=== PATIENT | female | born 1985 | race African-American/Black ===

== ENCOUNTER 2017-05-18 13:18 | Emergency (ER) | payer BC ==
[~2017-05-18] VITALS: Ht 165.1 cm; Wt 78.2 kg
[~2017-05-18 13:18] MED LIST: 00186-0372-20 IH; AMOXICILLIN 50500 MG PO; APTIOM; APTIOM PO; ASPIR-LOW81 MG PO; ASPIRIN E.C. 8181 MG PO; FERROUS SU325 MG/TAB PO; FLEXERIL 1010 MG/TAB PO; FLOVENT 44MCG I13 GM; IRON65 MG PO; LOVENOX 3030 MG/0.3 SQ; LOVENOX 4040 MG/0.4 SQ; LOVENOX30 MG/0.1 IJ; MOTRIN 600600 MG/TAB PO; NAPROSYN500 MG PO; NO HOME MEDICATIONS; NORCO 325 MG-51 TAB PO; PENICILLIN V250 MG PO; PERCOCET 325 MG1 TA2 PO; PERCOCET 500 MG1 TAB PO; PHENERGAN 25 TA25 MG PO; PHENERGAN W/CO120 ML PO; PHENERGAN25 MG; PHENERGAN25 MG RC; PREDNISONE20 MG PO; PRENATAL VITAMI1 TA5 PO; PRENATAL VITAMI1 TAB PO; PRENATAL1 TA2 PO; PROAIR HFA0.09 MG/AC; PROGESTERONE PO; PROTONIX20 MG PO; PROVENTIL0.09 MG/A1 IH; TRICOR 48MG48 MG PO; ZOFRAN 4MG T4 MG/TAB PO; ZOFRAN ODT4 MG PO
[2017-05-18 13:20] VITALS: TEMP 99
[2017-05-18 13:39] LABS: BASO # 0.1 (0.0-0.2); BASO % 0.6 % (0.0-2.0); EOS # 0.1 (0.0-0.7); EOS % 1.5 % (0-4.0); GRAN # 3.6 (1.4-6.5); GRAN % 40.9 % (42.2-75.2); LYMPH # 4.3 (1.2-3.4); LYMPH % 49.2 % (20.0-51.0); MEAN CELL VOLUME 76 fl (80.0-100.0); MEAN CORPUSCULAR HGB CONC 31 g/dl (33.0-37.0); MEAN PLATELET VOLUME 9.1 fl (7.4-10.4); MONO # 0.7 (0.1-0.6); MONO % 7.6 % (1.7-9.3); PLATELET COUNT 413 K/mm3 (130-400); RED BLOOD COUNT 4.33 M/mm3 (4.10-5.30); REDCELL DISTRIBUTION WIDTH-CV 15.7 % (11.5-14.5); WHITE BLOOD COUNT 8.7 K/mm3 (4.8-10.8)
[2017-05-18 13:42] LABS: HEMATOCRIT 32.7 % (37.0-47.0); HEMOGLOBIN 10.1 g/dl (12.5-16.0); MEAN CORPUSCULAR HEMOGLOBIN 23 pg (27.0-31.0)
[2017-05-18 13:55] LABS: ALANINE AMINOTRANSFERASE 24 U/L (9-52); ALBUMIN 4.6 gm/dL (3.5-5.0); ALKALINE PHOSPHATASE 82 U/L (50-136); ANION GAP 13 mmol/L (7-16); BILIRUBIN,TOTAL 0.8 mg/dL (0.0-1.0); BLOOD UREA NITROGEN 11 mg/dL (7-17); CALCIUM 9.5 mg/dL (8.4-10.2); CARBON DIOXIDE 23 mmol/L (22-30); CHLORIDE 103 mmol/L (98-107); CREATININE, serum 0.71 mg/dL (0.52-1.25); GLUCOSE 88 mg/dL (74-106); MAGNESIUM 1.9 mg/dL (1.6-2.3); POTASSIUM 3.8 mmol/L (3.4-5.0); SODIUM 138 mmol/L (137-145); TOTAL PROTEIN 8.6 gm/dL (6.4-8.2)
[2017-05-18 13:57] LABS: ACETAMINOPHEN < 10 ug/mL (10-30); SALICYLATE < 1.0 mg/dL
[2017-05-18 14:10] LABS: PROLACTIN 14.1 ng/mL (3.0-18.6)
[2017-05-18] MEDS ORDERED: KEPPRA 500MG500 MG PO (15:07)
[2017-05-18 15:42] VITALS: BP 137/79; PULSE 97
== END 2017-05-18 15:42 | disposition home or self-care (01) ==
LOC: COL.ER 13:18
PROVIDERS: Physician Assistant
DX: G40.209 Localization-related (focal) (partial) symptomatic epilepsy and epileptic syndromes with complex partial seizures, not intractable, without status epilepticus (principal); F41.9 Anxiety disorder, unspecified; Z91.14 Patient's other noncompliance with medication regimen
CPT/HCPCS: J1953; J2060; J2405; J7030

== ENCOUNTER 2017-06-29 12:51 | Emergency (ER) | payer BC ==
[~2017-06-29] VITALS: Ht 162.6 cm; Wt 81.8 kg
[~2017-06-29 12:51] MED LIST changes: +KEPPRA 500MG500 MG PO
[2017-06-29 12:55] VITALS: TEMP 98.3
[2017-06-29 13:32] LABS: PH 6 (5-8); URINE APPEARANCE Hazy; URINE BACTERIA Rare /hpf; URINE BILIRUBIN Negative (NEGATIVE); URINE BLOOD Negative (NEGATIVE); URINE COLOR Yellow; URINE GLUCOSE Negative (NEGATIVE); URINE KETONE Negative (NEGATIVE); URINE RBC 0-2 /hpf; URINE UROBILINOGEN Negative (NEGATIVE); URINE WBC 0-2 /hpf
[2017-06-29 14:29] LABS: BASO % 0.4 % (0.0-2.0); EOS # 0.1 (0.0-0.7); GRAN # 5.1 (1.4-6.5); GRAN % 61.7 % (42.2-75.2); LYMPH # 2.5 (1.2-3.4); LYMPH % 29.7 % (20.0-51.0); MEAN CELL VOLUME 76 fl (80.0-100.0); MEAN CORPUSCULAR HGB CONC 32 g/dl (33.0-37.0); MEAN PLATELET VOLUME 9.5 fl (7.4-10.4); MONO # 0.6 (0.1-0.6); PLATELET COUNT 311 K/mm3 (130-400); RED BLOOD COUNT 3.99 M/mm3 (4.10-5.30); REDCELL DISTRIBUTION WIDTH-CV 17.9 % (11.5-14.5); WHITE BLOOD COUNT 8.3 K/mm3 (4.8-10.8)
[2017-06-29 14:30] LABS: HEMATOCRIT 30.5 % (37.0-47.0); HEMOGLOBIN 9.7 g/dl (12.5-16.0); MEAN CORPUSCULAR HEMOGLOBIN 24 pg (27.0-31.0)
[2017-06-29 14:34] LABS: ADJUSTED CALCIUM 8.8 mg/dL (8.4-10.2); BILIRUBIN,TOTAL 0.8 mg/dL (0.0-1.0); CALCIUM 8.8 mg/dL (8.4-10.2); CREATININE, serum 0.58 mg/dL (0.52-1.25); POTASSIUM 3.8 mmol/L (3.4-5.0); TOTAL PROTEIN 7.9 gm/dL (6.4-8.2)
[2017-06-29] MEDS ORDERED: NORCO 325 MG-51 TAB PO (15:19)
[2017-06-29 15:36] VITALS: BP 126/82; PULSE 79
[2017-06-29 17:16] LABS: CHLAMYDIA/TRACH by PCR Female NOT DETECTED; NEISSERIA GON by PCR Female NOT DETECTED
== END 2017-06-29 15:38 | disposition home or self-care (01) ==
LOC: COL.ER 12:51
PROVIDERS: Physician Assistant
DX: O26.891 Other specified pregnancy related conditions, first trimester (principal); M54.5 Low back pain; O99.511 Diseases of the respiratory system complicating pregnancy, first trimester; J45.909 Unspecified asthma, uncomplicated; Z87.59 Personal history of other complications of pregnancy, childbirth and the puerperium; Z3A.08 8 weeks gestation of pregnancy

== ENCOUNTER 2017-10-08 15:02 | Outpatient (CLI) | payer BC ==
[~2017-10-08] VITALS: Ht 162.6 cm; Wt 83.6 kg
[2017-10-08 15:00] VITALS: BP 144/67; PULSE 96
[~2017-10-08 15:02] MED LIST changes: +MAKENA250 MG/1 M IM; +PRENATAL
[2017-10-08 15:06] VITALS: BP 148/77; PULSE 80; TEMP 98.4
[2017-10-08 15:30] VITALS: BP 139/63; PULSE 86
[2017-10-08 16:00] VITALS: BP 139/67; PULSE 82; TEMP 98.1
[2017-10-08 16:17] LABS: COLLECTION METHOD CLEAN CATCH
[2017-10-08 16:20] LABS: MEAN CELL VOLUME 82 fl (80.0-100.0); MEAN CORPUSCULAR HGB CONC 31 g/dl (33.0-37.0); MEAN PLATELET VOLUME 9.6 fl (7.4-10.4); PLATELET COUNT 318 K/mm3 (130-400); RED BLOOD COUNT 3.43 M/mm3 (4.10-5.30)
[2017-10-08 16:26] LABS: HEMOGLOBIN 8.7 g/dl (12.5-16.0); MEAN CORPUSCULAR HEMOGLOBIN 25 pg (27.0-31.0)
[2017-10-08 16:27] LABS: MUCOUS Present /lpf; PH 7 (5-8); URINE APPEARANCE Hazy; URINE BACTERIA None Seen /hpf; URINE BILIRUBIN Negative (NEGATIVE); URINE BLOOD Negative (NEGATIVE); URINE COLOR Yellow; URINE GLUCOSE Negative (NEGATIVE); URINE KETONE Negative (NEGATIVE); URINE LEUKOCYTE ESTERASE Negative (NEGATIVE); URINE PROTEIN(semi-quant) Negative (NEGATIVE); URINE RBC 0-2 /hpf; URINE UROBILINOGEN >=4.0 mg/dL (NEGATIVE); URINE WBC 0-2 /hpf
[2017-10-08 16:30] VITALS: BP 147/79; PULSE 90
[2017-10-08 16:32] LABS: ADJUSTED CALCIUM 9.2 mg/dL (8.4-10.2); ALBUMIN 3.6 gm/dL (3.5-5.0); BILIRUBIN,TOTAL 0.5 mg/dL (0.0-1.0); CALCIUM 8.9 mg/dL (8.4-10.2); CREATININE, serum 0.57 mg/dL (0.52-1.25); POTASSIUM 3.7 mmol/L (3.4-5.0); TOTAL PROTEIN 7.4 gm/dL (6.4-8.2)
[2017-10-08 18:00] VITALS: BP 134/71; PULSE 90
== END 2017-10-08 18:27 | disposition home health service (06) ==
LOC: LDRO 15:02 → LDR 15:02 → LDRO 18:27
PROVIDERS: Obstetrics & Gynecology
DX: O99.89 Other specified diseases and conditions complicating pregnancy, childbirth and the puerperium (principal); M54.5 Low back pain; R51 Headache; H53.8 Other visual disturbances; Z87.59 Personal history of other complications of pregnancy, childbirth and the puerperium; Z3A.22 22 weeks gestation of pregnancy; Z91.040 Latex allergy status
CPT/HCPCS: OP

== ENCOUNTER 2017-10-19 11:31 | Emergency (ER) | payer BC ==
[~2017-10-19] VITALS: Ht 162.6 cm; Wt 84.1 kg
[2017-10-19 11:37] VITALS: TEMP 99
[2017-10-19 12:22] LABS: COLLECTION METHOD CLEAN CATCH
[2017-10-19 12:30] LABS: BASO % 0.5 % (0.0-2.0); EOS % 0.5 % (0-4.0); GRAN # 5.5 (1.4-6.5); GRAN % 67.2 % (42.2-75.2); LYMPH # 1.4 (1.2-3.4); LYMPH % 17.5 % (20.0-51.0); MEAN CELL VOLUME 79 fl (80.0-100.0); MEAN CORPUSCULAR HGB CONC 31 g/dl (33.0-37.0); MEAN PLATELET VOLUME 9.2 fl (7.4-10.4); MONO # 1.1 (0.1-0.6); MONO % 13.3 % (1.7-9.3); PLATELET COUNT 333 K/mm3 (130-400); RED BLOOD COUNT 3.84 M/mm3 (4.10-5.30); REDCELL DISTRIBUTION WIDTH-CV 15.6 % (11.5-14.5)
[2017-10-19 12:32] LABS: INFLUENZA A NEGATIVE; INFLUENZA B NEGATIVE
[2017-10-19 12:32] LABS: HEMATOCRIT 30.4 % (37.0-47.0); HEMOGLOBIN 9.4 g/dl (12.5-16.0); MEAN CORPUSCULAR HEMOGLOBIN 24 pg (27.0-31.0)
[2017-10-19 12:35] LABS: BILIRUBIN,TOTAL 0.8 mg/dL (0.0-1.0); CALCIUM 9.2 mg/dL (8.4-10.2); CREATININE, serum 0.56 mg/dL (0.52-1.25); MUCOUS Present /lpf; PH 6 (5-8); POTASSIUM 3.8 mmol/L (3.4-5.0); TOTAL PROTEIN 8.1 gm/dL (6.4-8.2); URINE APPEARANCE Hazy; URINE BACTERIA None Seen /hpf; URINE BILIRUBIN Negative (NEGATIVE); URINE BLOOD Negative (NEGATIVE); URINE COLOR Yellow; URINE GLUCOSE Negative (NEGATIVE); URINE KETONE 1+ (NEGATIVE); URINE LEUKOCYTE ESTERASE Negative (NEGATIVE); URINE NITRATE Negative (NEGATIVE); URINE PROTEIN(semi-quant) 1+ (NEGATIVE); URINE RBC 0-2 /hpf; URINE UROBILINOGEN >=4.0 mg/dL (NEGATIVE)
[2017-10-19] MEDS ORDERED: PHENERGAN 25 TA25 MG PO (15:07)
[2017-10-19 15:50] VITALS: BP 114/63; PULSE 94
== END 2017-10-19 15:52 | disposition home or self-care (01) ==
LOC: COL.ER 11:31
PROVIDERS: Nurse Practitioner
DX: J06.9 Acute upper respiratory infection, unspecified (principal); R11.10 Vomiting, unspecified; J45.909 Unspecified asthma, uncomplicated
CPT/HCPCS: J2550; J7030

== ENCOUNTER 2017-11-13 11:51 | Outpatient (CLI) | payer BC ==
[~2017-11-13] VITALS: Ht 162.6 cm; Wt 84.1 kg
[2017-11-13 11:56] VITALS: BP 138/81; PULSE 80; TEMP 98.6
[2017-11-13] MEDS ORDERED: PRENATAL1 TA7 PO (12:04)
[2017-11-13 12:17] LABS: COLLECTION METHOD CATHETER
[2017-11-13 12:50] VITALS: BP 139/73; PULSE 76
[2017-11-13 13:07] LABS: MUCOUS Present /lpf; PH 7 (5-8); SQUAMOUS EPITHELIAL 0-2 /hpf; URINE APPEARANCE Clear; URINE BACTERIA None Seen /hpf; URINE BILIRUBIN Negative (NEGATIVE); URINE BLOOD Negative (NEGATIVE); URINE COLOR Straw; URINE GLUCOSE Negative (NEGATIVE); URINE KETONE Negative (NEGATIVE); URINE LEUKOCYTE ESTERASE Negative (NEGATIVE); URINE NITRATE Negative (NEGATIVE); URINE PROTEIN(semi-quant) Negative (NEGATIVE); URINE RBC 0-2 /hpf; URINE UROBILINOGEN Negative (NEGATIVE); URINE WBC 0-2 /hpf
[2017-11-13 13:30] VITALS: BP 132/72; PULSE 76
== END 2017-11-13 13:30 | disposition home or self-care (01) ==
LOC: LDRO 11:51
PROVIDERS: Obstetrics & Gynecology
DX: O60.02 Preterm labor without delivery, second trimester (principal); Z3A.27 27 weeks gestation of pregnancy
CPT/HCPCS: J0702; J7120

== ENCOUNTER 2017-12-15 11:14 | Outpatient (CLI) | payer BC ==
[~2017-12-15] VITALS: Ht 162.6 cm; Wt 86.8 kg
[~2017-12-15 11:14] MED LIST changes: +PRENATAL1 TA7 PO
[2017-12-15 11:15] VITALS: BP 140/83; PULSE 99; TEMP 98.1
[2017-12-15] MEDS ORDERED: ZANTAC 7575 MG PO (11:22)
[2017-12-15 12:30] VITALS: BP 140/83; PULSE 99; TEMP 98.1
[2017-12-15 12:40] LABS: BASO % 0.3 % (0.0-2.0); EOS # 0.1 (0.0-0.7); EOS % 0.6 % (0-4.0); GRAN # 6.9 (1.4-6.5); GRAN % 69.6 % (42.2-75.2); LYMPH # 2.1 (1.2-3.4); MEAN CELL VOLUME 75 fl (80.0-100.0); MEAN CORPUSCULAR HGB CONC 30 g/dl (33.0-37.0); MEAN PLATELET VOLUME 9.3 fl (7.4-10.4); MONO # 0.8 (0.1-0.6); MONO % 7.6 % (1.7-9.3); PLATELET COUNT 271 K/mm3 (130-400); RED BLOOD COUNT 3.72 M/mm3 (4.10-5.30); REDCELL DISTRIBUTION WIDTH-CV 17.1 % (11.5-14.5)
[2017-12-15 12:41] LABS: HEMOGLOBIN 8.5 g/dl (12.5-16.0); MEAN CORPUSCULAR HEMOGLOBIN 23 pg (27.0-31.0)
[2017-12-15 12:51] LABS: ALBUMIN 3.2 gm/dL (3.5-5.0); BILIRUBIN,TOTAL 0.7 mg/dL (0.0-1.0); CALCIUM 8.2 mg/dL (8.4-10.2); CREATININE, serum 0.49 mg/dL (0.52-1.25); POTASSIUM 3.7 mmol/L (3.4-5.0); TOTAL PROTEIN 6.9 gm/dL (6.4-8.2)
[2017-12-15 13:10] VITALS: BP 128/59; PULSE 78
== END 2017-12-15 13:20 | disposition home or self-care (01) ==
LOC: LDR 11:14 → LDRO 11:14
PROVIDERS: Student in an Organized Health Care Education/Training Program
DX: O99.89 Other specified diseases and conditions complicating pregnancy, childbirth and the puerperium (principal); R51 Headache; H53.8 Other visual disturbances; Z3A.32 32 weeks gestation of pregnancy
CPT/HCPCS: OP

== ENCOUNTER 2017-12-28 20:48 | Outpatient (CLI) | payer BC ==
[~2017-12-28] VITALS: Ht 162.6 cm; Wt 88.2 kg
[~2017-12-28 20:48] MED LIST changes: +ZANTAC 7575 MG PO
[2017-12-28 22:00] VITALS: BP 139/75; PULSE 86; TEMP 97.9
== END 2017-12-28 22:15 | disposition home or self-care (01) ==
LOC: LDRO 20:48
DX: O34.83 Maternal care for other abnormalities of pelvic organs, third trimester (principal); Z3A.34 34 weeks gestation of pregnancy

== ENCOUNTER 2018-01-05 21:25 | Outpatient (CLI) | payer BC ==
[~2018-01-05] VITALS: Ht 162.6 cm; Wt 88.2 kg
[2018-01-05 21:44] VITALS: BP 143/68; PULSE 82; TEMP 99.3
[2018-01-05 22:00] VITALS: BP 144/77; PULSE 88
[2018-01-05 22:30] VITALS: BP 159/82; PULSE 88
[2018-01-05 23:00] VITALS: BP 139/81; PULSE 88
[2018-01-05 23:30] VITALS: BP 148/79; PULSE 85
[2018-01-05 23:47] VITALS: BP 161/77; PULSE 85
== END 2018-01-05 23:54 | disposition home or self-care (01) ==
LOC: LDRO 21:25
DX: O60.03 Preterm labor without delivery, third trimester (principal); Z3A.35 35 weeks gestation of pregnancy

== ENCOUNTER 2018-01-13 00:48 | Outpatient (CLI) | payer BC ==
[~2018-01-13] VITALS: Ht 162.6 cm; Wt 88.6 kg
[2018-01-13] VITALS (13 sets, daily range): BP systolic 140–160; BP diastolic 65–96; PULSE 61–84; TEMP 98.5–98.9
[2018-01-13] MEDS ORDERED: VISTARIL 2525 MG/CAP PO (01:18)
[2018-01-13 03:16] LABS: COLLECTION METHOD CLEAN CATCH
[2018-01-13 03:18] LABS: BASO % 0.3 % (0.0-2.0); EOS # 0.1 (0.0-0.7); EOS % 0.7 % (0-4.0); GRAN # 7.5 (1.4-6.5); GRAN % 65.8 % (42.2-75.2); LYMPH # 2.8 (1.2-3.4); LYMPH % 24.5 % (20.0-51.0); MEAN CELL VOLUME 72 fl (80.0-100.0); MEAN CORPUSCULAR HGB CONC 31 g/dl (33.0-37.0); MEAN PLATELET VOLUME 9.6 fl (7.4-10.4); MONO # 0.9 (0.1-0.6); PLATELET COUNT 287 K/mm3 (130-400); REDCELL DISTRIBUTION WIDTH-CV 17.9 % (11.5-14.5)
[2018-01-13 03:19] LABS: HEMATOCRIT 28.8 % (37.0-47.0); HEMOGLOBIN 8.9 g/dl (12.5-16.0); MEAN CORPUSCULAR HEMOGLOBIN 22 pg (27.0-31.0)
[2018-01-13 03:22] LABS: MUCOUS Present /lpf; PH 5 (5-8); URINE APPEARANCE Hazy; URINE BACTERIA Rare /hpf; URINE BILIRUBIN Negative (NEGATIVE); URINE BLOOD Negative (NEGATIVE); URINE COLOR Amber; URINE GLUCOSE Negative (NEGATIVE); URINE KETONE 2+ (NEGATIVE); URINE LEUKOCYTE ESTERASE Negative (NEGATIVE); URINE NITRATE Negative (NEGATIVE); URINE PROTEIN(semi-quant) 1+ (NEGATIVE); URINE RBC 0-2 /hpf; URINE UROBILINOGEN >=4.0 mg/dL (NEGATIVE); URINE WBC 0-2 /hpf
[2018-01-13 03:28] LABS: ALBUMIN 3.4 gm/dL (3.5-5.0); CALCIUM 8.7 mg/dL (8.4-10.2); CREATININE, serum 0.49 mg/dL (0.52-1.25); POTASSIUM 3.8 mmol/L (3.4-5.0); TOTAL PROTEIN 7.4 gm/dL (6.4-8.2)
== END 2018-01-13 07:05 | disposition home or self-care (01) ==
LOC: LDRO 00:48
PROVIDERS: Obstetrics & Gynecology
DX: O62.9 Abnormality of forces of labor, unspecified (principal); Z3A.36 36 weeks gestation of pregnancy
CPT/HCPCS: J7120

== ENCOUNTER 2018-01-19 10:52 | Inpatient (IN) | payer BC ==
[2018-01-19] VITALS (43 sets, daily range): BP systolic 127–177; BP diastolic 62–100; PULSE 57–122; TEMP 97.6–98.4
[~2018-01-19] VITALS: Ht 162.6 cm; Wt 88.2 kg
[~2018-01-19 10:52] MED LIST changes: +VISTARIL 2525 MG/CAP PO
[2018-01-19 11:39] LABS: BASO % 0.2 % (0.0-2.0); EOS # 0.1 (0.0-0.7); EOS % 0.7 % (0-4.0); GRAN # 5.7 (1.4-6.5); GRAN % 68.9 % (42.2-75.2); LYMPH # 1.9 (1.2-3.4); LYMPH % 22.5 % (20.0-51.0); MEAN CELL VOLUME 72 fl (80.0-100.0); MEAN CORPUSCULAR HGB CONC 30 g/dl (33.0-37.0); MEAN PLATELET VOLUME 9.9 fl (7.4-10.4); MONO # 0.5 (0.1-0.6); MONO % 6.4 % (1.7-9.3); PLATELET COUNT 274 K/mm3 (130-400); RED BLOOD COUNT 3.84 M/mm3 (4.10-5.30)
[2018-01-19 11:41] LABS: HEMATOCRIT 27.7 % (37.0-47.0); HEMOGLOBIN 8.4 g/dl (12.5-16.0); MEAN CORPUSCULAR HEMOGLOBIN 22 pg (27.0-31.0)
[2018-01-19 11:45] LABS: ALBUMIN 3.2 gm/dL (3.5-5.0); BILIRUBIN,TOTAL 0.9 mg/dL (0.0-1.0); CALCIUM 8.9 mg/dL (8.4-10.2); CREATININE, serum 0.55 mg/dL (0.52-1.25); POTASSIUM 3.6 mmol/L (3.4-5.0); TOTAL PROTEIN 7.1 gm/dL (6.4-8.2)
[2018-01-20 04:06] VITALS: BP 136/78; PULSE 76; TEMP 98.7
[2018-01-20 09:00] VITALS: BP 138/92; PULSE 88; TEMP 98.2
[2018-01-20 21:10] VITALS: BP 150/81; PULSE 75; TEMP 98.7
[2018-01-21 07:30] VITALS: BP 143/87; PULSE 80; TEMP 97.7
[2018-01-21] MEDS ORDERED: FERROUS SU325 MG/TAB PO (08:34)
[2018-01-21] MEDS ORDERED: IBU600 MG PO (08:42)
[2018-01-21] MEDS ORDERED: PERCOCET 325 MG1 TA2 PO (08:43)
[2018-01-21 12:30] VITALS: BP 155/78; PULSE 70; TEMP 97.8
[2018-01-21 16:45] VITALS: BP 155/91; PULSE 67; TEMP 97.5
[2018-01-21 21:30] VITALS: BP 148/92; PULSE 92; TEMP 98.4
[2018-01-22] VITALS: BP 124/54; PULSE 92; TEMP 97.9
[2018-01-22 04:30] VITALS: BP 120/60; PULSE 70
[2018-01-22 07:50] VITALS: BP 136/86; PULSE 96; TEMP 98.4
[2018-01-22] MEDS ORDERED: PROCARDIA XL 3030 MG PO (09:03)
[2018-01-22] MEDS ORDERED: LOVENOX 4040 MG/0.4 SQ (09:05)
== END 2018-01-22 11:00 | disposition home or self-care (01) | DRG 774 ==
LOC: LDRO 10:52 → OB 13:02 → LDR 13:02 → OB 01-20
PROVIDERS: Obstetrics & Gynecology
PROC: 10E0XZZ Delivery of Products of Conception, External Approach (ICD-10-PCS; principal; 2018-01-19)
PROC: 3E033VJ Introduction of Other Hormone into Peripheral Vein, Percutaneous Approach (ICD-10-PCS; 2018-01-19)
DX: O10.92 Unspecified pre-existing hypertension complicating childbirth (principal); O99.113 Other diseases of the blood and blood-forming organs and certain disorders involving the immune mechanism complicating pregnancy, third trimester; D68.59 Other primary thrombophilia; O34.211 Maternal care for low transverse scar from previous cesarean delivery; Z3A.37 37 weeks gestation of pregnancy; Z37.0 Single live birth; O40.3XX0 Polyhydramnios, third trimester, not applicable or unspecified; O99.013 Anemia complicating pregnancy, third trimester; Z23 Encounter for immunization
CPT/HCPCS: J1650; J2405; J2590; J2795; J7120

== ENCOUNTER 2018-09-30 14:28 | Emergency (ER) | payer BC ==
[~2018-09-30] VITALS: Ht 162.6 cm; Wt 76.4 kg
[~2018-09-30 14:28] MED LIST changes: +IBU600 MG PO; +PROCARDIA XL 3030 MG PO
[2018-09-30 14:33] VITALS: BP 187/89; TEMP 98
[2018-09-30 14:48] LABS: COLLECTION METHOD CLEAN CATCH
[2018-09-30 14:55] LABS: MUCOUS Present /lpf; PH 6 (5-8); URINE APPEARANCE Cloudy; URINE BACTERIA None Seen /hpf; URINE BILIRUBIN Negative (NEGATIVE); URINE BLOOD Negative (NEGATIVE); URINE COLOR Yellow; URINE GLUCOSE Negative (NEGATIVE); URINE KETONE Negative (NEGATIVE); URINE LEUKOCYTE ESTERASE Negative (NEGATIVE); URINE NITRATE Negative (NEGATIVE); URINE PROTEIN(semi-quant) 1+ (NEGATIVE); URINE RBC 0-2 /hpf
[2018-09-30] MEDS ORDERED: NORCO 325 MG-51 TAB PO (16:03)
[2018-09-30] MEDS ORDERED: MEDROL 4MG DOSPA4 MG PO (16:03)
[2018-09-30] MEDS ORDERED: FLEXERIL 1010 MG/TAB PO (16:03)
[2018-09-30 16:29] VITALS: PULSE 76
== END 2018-09-30 16:30 | disposition home or self-care (01) ==
LOC: COL.ER 14:28
PROVIDERS: Physician Assistant
DX: S39.012A Strain of muscle, fascia and tendon of lower back, initial encounter (principal); J45.909 Unspecified asthma, uncomplicated; Z98.890 Other specified postprocedural states; X58.XXXA Exposure to other specified factors, initial encounter
CPT/HCPCS: J1885

== ENCOUNTER 2019-05-23 16:46 | Emergency (ER) | payer BC ==
[~2019-05-23] VITALS: Ht 162.6 cm; Wt 72.3 kg
[~2019-05-23 16:46] MED LIST changes: +MEDROL 4MG DOSPA4 MG PO
[2019-05-23] MEDS ORDERED: ZANAFLEX CAPSULE2 MG (16:57)
[2019-05-23 16:58] VITALS: TEMP 98.2
[2019-05-23] MEDS ORDERED: ROBAXIN 50500 MG/TAB (16:58)
[2019-05-23 17:55] LABS: COLLECTION METHOD CLEAN CATCH
[2019-05-23 18:04] LABS: AMORPHOUS CRYSTAL Present /uL; MUCOUS Present /lpf; PH 8 (5-8); URINE APPEARANCE Hazy; URINE BACTERIA None Seen /hpf; URINE BILIRUBIN Negative (NEGATIVE); URINE BLOOD Negative (NEGATIVE); URINE COLOR Yellow; URINE GLUCOSE Negative (NEGATIVE); URINE KETONE Negative (NEGATIVE); URINE LEUKOCYTE ESTERASE Negative (NEGATIVE); URINE NITRATE Negative (NEGATIVE); URINE PROTEIN(semi-quant) 1+ (NEGATIVE); URINE RBC 0-2 /hpf
[2019-05-23] MEDS ORDERED: NORCO 325 MG-51 TAB PO (18:07)
[2019-05-23] MEDS ORDERED: FLEXERIL 1010 MG/TAB PO (18:08)
[2019-05-23 18:17] VITALS: BP 148/81; PULSE 74
== END 2019-05-23 18:17 | disposition home or self-care (01) ==
LOC: COL.ER 16:46
PROVIDERS: Physician Assistant
DX: M54.5 Low back pain (principal); G89.29 Other chronic pain

== ENCOUNTER 2019-08-11 17:00 | Emergency (ER) | payer BC ==
[~2019-08-11] VITALS: Ht 162.6 cm; Wt 73.6 kg
[~2019-08-11 17:00] MED LIST changes: +ROBAXIN 50500 MG/TAB; +ZANAFLEX CAPSULE2 MG
[2019-08-11 17:12] VITALS: TEMP 97.7
[2019-08-11] MEDS ORDERED: MOBIC 7.5MG7.5 MG PO (17:35)
[2019-08-11 18:14] VITALS: BP 148/97; PULSE 79
== END 2019-08-11 18:16 | disposition home or self-care (01) ==
LOC: COL.ER 17:00
DX: M54.5 Low back pain (principal); J45.909 Unspecified asthma, uncomplicated; I10 Essential (primary) hypertension; Z98.890 Other specified postprocedural states
CPT/HCPCS: J1885

== ENCOUNTER 2020-05-07 23:24 | Emergency (ER) | payer BC ==
[~2020-05-07] VITALS: Ht 162.6 cm; Wt 77.3 kg
[~2020-05-07 23:24] MED LIST changes: +MOBIC 7.5MG7.5 MG PO
[2020-05-07 23:27] VITALS: TEMP 97.6
[2020-05-08 00:11] LABS: BASO % 0.5 % (0.0-2.0); EOS # 0.1 (0.0-0.7); EOS % 1.4 % (0-4.0); GRAN # 5.4 (1.4-6.5); GRAN % 62.6 % (42.2-75.2); LYMPH # 2.5 (1.2-3.4); LYMPH % 28.8 % (20.0-51.0); MEAN CELL VOLUME 77 fl (80.0-100.0); MEAN CORPUSCULAR HGB CONC 30 g/dl (33.0-37.0); MEAN PLATELET VOLUME 9.5 fl (7.4-10.4); MONO # 0.5 (0.1-0.6); MONO % 6.1 % (1.7-9.3); PLATELET COUNT 384 K/mm3 (130-400); RED BLOOD COUNT 3.87 M/mm3 (4.10-5.30); REDCELL DISTRIBUTION WIDTH-CV 17.2 % (11.5-14.5)
[2020-05-08 00:22] LABS: HEMATOCRIT 29.8 % (37.0-47.0); HEMOGLOBIN 8.9 g/dl (12.5-16.0); MEAN CORPUSCULAR HEMOGLOBIN 23 pg (27.0-31.0)
[2020-05-08 00:37] LABS: ALANINE AMINOTRANSFERASE 15 U/L (4-34); ALBUMIN 4.4 gm/dL (3.5-5.0); ALKALINE PHOSPHATASE 75 U/L (50-136); ANION GAP 10 mmol/L (7-16); AST,SGOT 28 U/L (15-37); BILIRUBIN,TOTAL 0.6 mg/dL (0.0-1.0); BLOOD UREA NITROGEN 18 mg/dL (7-17); C-REACTIVE PROTEIN < 0.5 mg/dL (0.0-0.9); CALCIUM 8.9 mg/dL (8.4-10.2); CARBON DIOXIDE 23 mmol/L (22-30); CHLORIDE 105 mmol/L (98-107); CREATININE, serum 0.81 (0.52-1.25); GLUCOSE 120 mg/dL (74-106); POTASSIUM 3.8 mmol/L (3.4-5.0); SODIUM 137 mmol/L (137-145); TOTAL PROTEIN 8.3 gm/dL (6.4-8.2)
[2020-05-08 00:53] LABS: COLLECTION METHOD CLEAN CATCH
[2020-05-08 01:01] LABS: AMORPHOUS CRYSTAL Present /uL; MUCOUS Present /lpf; PH 7 (5-8); SQUAMOUS EPITHELIAL 0-2 /hpf; URINE APPEARANCE Cloudy; URINE BACTERIA Rare /hpf; URINE BILIRUBIN Negative (NEGATIVE); URINE BLOOD Negative (NEGATIVE); URINE COLOR Yellow; URINE GLUCOSE Negative (NEGATIVE); URINE KETONE Trace (NEGATIVE); URINE LEUKOCYTE ESTERASE Trace (NEGATIVE); URINE NITRATE Negative (NEGATIVE); URINE PROTEIN(semi-quant) Negative (NEGATIVE); URINE RBC 0-2 /hpf; URINE UROBILINOGEN Negative (NEGATIVE)
[2020-05-08] MEDS ORDERED: ANTIVERT 25MG25 MG PO (01:35)
[2020-05-08] MEDS ORDERED: CEPHALEXIN500 M1 PO (01:35)
[2020-05-08 02:16] VITALS: BP 154/70; PULSE 64
== END 2020-05-08 02:16 | disposition home or self-care (01) ==
LOC: COL.ER 23:24
PROVIDERS: Physician Assistant
DX: N39.0 Urinary tract infection, site not specified (principal); E86.0 Dehydration; D64.9 Anemia, unspecified; I10 Essential (primary) hypertension; J45.909 Unspecified asthma, uncomplicated; G40.909 Epilepsy, unspecified, not intractable, without status epilepticus
CPT/HCPCS: J2060; J2405; J7030

== ENCOUNTER 2020-06-01 19:09 | Outpatient (CLI) | payer BC ==
[~2020-06-01] VITALS: Ht 162.6 cm; Wt 79.5 kg
[2020-06-01 18:04] VITALS: BP 132/99; PULSE 88; TEMP 98.8
[2020-06-01 18:27] VITALS: BP 146/86; PULSE 84
[2020-06-01 19:08] VITALS: BP 148/93; PULSE 79
[~2020-06-01 19:09] MED LIST changes: +ANTIVERT 25MG25 MG PO; +CEPHALEXIN500 M1 PO; +NEURONTIN600 MG/TAB PO; -ROBAXIN 50500 MG/TAB; +ROBAXIN 50500 MG/TAB PO; -ZANAFLEX CAPSULE2 MG; +ZANAFLEX CAPSULE2 MG PO
== END 2020-06-01 20:07 | disposition home or self-care (01) ==
LOC: EUO 19:09
DX: D50.9 Iron deficiency anemia, unspecified (principal)
CPT/HCPCS: J2916

== ENCOUNTER 2020-06-12 16:15 | Outpatient (RCR) | payer BC | END 2020-07-04 | disposition home or self-care (01) | LOC: WSC | DX: M54.5 Low back pain (principal); G89.29 Other chronic pain ==

== ENCOUNTER → 2021-05-14 | Outpatient (CLI) | payer BC ==
[~2021-05-14] MED LIST changes: +CYMBALTA 60MG60 MG PO; +HCTZ 25MG TAB25 MG PO; +NORVASC 5MG5 MG/TAB PO
== END ==
LOC: COL.RAD 09:24
DX: G43.009 Migraine without aura, not intractable, without status migrainosus (principal); G40.909 Epilepsy, unspecified, not intractable, without status epilepticus; D68.59 Other primary thrombophilia
CPT/HCPCS: A9585

== ENCOUNTER 2021-07-14 09:35 | Emergency (ER) | payer BC ==
[~2021-07-14] VITALS: Ht 162.6 cm; Wt 77.3 kg
[~2021-07-14 09:35] MED LIST changes: -CYMBALTA 60MG60 MG PO; -HCTZ 25MG TAB25 MG PO; -NORVASC 5MG5 MG/TAB PO
[2021-07-14 09:41] VITALS: TEMP 98.7
[2021-07-14 10:26] LABS: BASO % 0.3 % (0.0-2.0); EOS # 0.2 (0.0-0.7); GRAN # 6.7 (1.4-6.5); GRAN % 83.9 % (42.2-75.2); HEMATOCRIT 37.3 % (37.0-47.0); HEMOGLOBIN 12.3 g/dl (12.5-16.0); LYMPH # 0.6 (1.2-3.4); LYMPH % 7.1 % (20.0-51.0); MEAN CELL VOLUME 85 fl (80.0-100.0); MEAN CORPUSCULAR HEMOGLOBIN 28 pg (27.0-31.0); MEAN CORPUSCULAR HGB CONC 33 g/dl (33.0-37.0); MEAN PLATELET VOLUME 9.1 fl (7.4-10.4); MONO # 0.5 (0.1-0.6); MONO % 6.3 % (1.7-9.3); PLATELET COUNT 318 K/mm3 (130-400); RED BLOOD COUNT 4.38 M/mm3 (4.10-5.30); REDCELL DISTRIBUTION WIDTH-CV 14.6 % (11.5-14.5)
[2021-07-14 10:47] LABS: ALBUMIN 3.9 gm/dL (3.5-5.0); BILIRUBIN,TOTAL 1.2 mg/dL (0.2-1.2); CALCIUM 8.8 mg/dL (8.4-10.2); POTASSIUM 3.7 mmol/L (3.5-4.5); TOTAL PROTEIN 8.2 gm/dL (6.2-8.1)
[2021-07-14 11:01] LABS: CREATININE, serum 0.84 mg/dL (0.57-1.11)
[2021-07-14 11:53] LABS: COLLECTION METHOD CLEAN CATCH
[2021-07-14] MEDS ORDERED: CYMBALTA 60MG60 MG PO (12:01)
[2021-07-14] MEDS ORDERED: HCTZ 25MG TAB25 MG PO (12:01)
[2021-07-14 12:02] LABS: MUCOUS Present /lpf; PH 7 (5-8); SQUAMOUS EPITHELIAL 0-2 /hpf; URINE APPEARANCE Clear; URINE BACTERIA None Seen /hpf; URINE BILIRUBIN Negative (NEGATIVE); URINE BLOOD Negative (NEGATIVE); URINE COLOR Yellow; URINE GLUCOSE Negative (NEGATIVE); URINE KETONE 1+ (NEGATIVE); URINE LEUKOCYTE ESTERASE Negative (NEGATIVE); URINE NITRATE Negative (NEGATIVE); URINE PROTEIN(semi-quant) Negative (NEGATIVE); URINE RBC 0-2 /hpf; URINE UROBILINOGEN Negative (NEGATIVE)
[2021-07-14] MEDS ORDERED: NORVASC 5MG5 MG/TAB PO (12:02)
[2021-07-14] MEDS ORDERED: PERCOCET 325 MG1 TA2 PO (12:02)
[2021-07-14] MEDS ORDERED: ZOFRAN ODT4 MG PO (12:20)
[2021-07-14 12:28] VITALS: BP 130/105; PULSE 94
== END 2021-07-14 12:29 | disposition home or self-care (01) ==
LOC: COL.ER 09:35
PROVIDERS: Physician Assistant
DX: R11.2 Nausea with vomiting, unspecified (principal); R10.31 Right lower quadrant pain; R10.11 Right upper quadrant pain; F32.9 Major depressive disorder, single episode, unspecified; F41.9 Anxiety disorder, unspecified; Z20.822 Contact with and (suspected) exposure to COVID-19; Z90.49 Acquired absence of other specified parts of digestive tract; Z79.899 Other long term (current) drug therapy
CPT/HCPCS: J2405; J7030

== ENCOUNTER 2021-10-25 17:01 | Emergency (ER) | payer BC ==
[~2021-10-25] VITALS: Ht 162.6 cm; Wt 75.0 kg
[~2021-10-25 17:01] MED LIST changes: +CYMBALTA 60MG60 MG PO; +HCTZ 25MG TAB25 MG PO; +NORVASC 5MG5 MG/TAB PO
[2021-10-25 17:30] VITALS: TEMP 99.7
[2021-10-25 19:09] VITALS: BP 136/79; PULSE 83
== END 2021-10-25 19:11 | disposition home or self-care (01) ==
LOC: COL.ER 17:01
DX: U07.1 COVID-19 (principal); J45.909 Unspecified asthma, uncomplicated; I10 Essential (primary) hypertension; Z91.040 Latex allergy status; Z79.899 Other long term (current) drug therapy

== ENCOUNTER 2021-12-04 16:04 | Outpatient (RCR) | payer BC | END 2021-12-10 | disposition home or self-care (01) | LOC: MKS.ESL.PT | DX: M54.2 Cervicalgia (principal) ==

== ENCOUNTER → 2022-01-25 | Outpatient (CLI) | payer BC ==
[~2022-01-25] MED LIST changes: +COZAAR 25MG25 MG/TAB PO; +IMITREX50 MG PO; +NEURONTIN800 MG/TAB PO
== END ==
LOC: COL.CARD 10:00
DX: G40.909 Epilepsy, unspecified, not intractable, without status epilepticus (principal)

== ENCOUNTER 2022-02-01 16:34 | Emergency (ER) | payer BC ==
[~2022-02-01] VITALS: Ht 162.6 cm; Wt 77.3 kg
[~2022-02-01 16:34] MED LIST changes: -COZAAR 25MG25 MG/TAB PO; -IMITREX50 MG PO; -NEURONTIN800 MG/TAB PO
[2022-02-01 16:54] VITALS: TEMP 98.5
[2022-02-01] MEDS ORDERED: IMITREX50 MG PO (18:14)
[2022-02-01] MEDS ORDERED: COZAAR 25MG25 MG/TAB PO (18:14)
[2022-02-01] MEDS ORDERED: NEURONTIN800 MG/TAB PO (18:15)
[2022-02-01] MEDS ORDERED: KEPPRA 500MG500 MG PO (18:15)
[2022-02-01 19:19] LABS: ALBUMIN 3.7 gm/dL (3.5-5.0); BILIRUBIN,TOTAL 0.6 mg/dL (0.2-1.2); CALCIUM 8.5 mg/dL (8.4-10.2); CREATININE, serum 0.7 mg/dL (0.57-1.11); POTASSIUM 4.5 mmol/L (3.5-4.5); TOTAL PROTEIN 7.6 gm/dL (6.2-8.1)
[2022-02-01 19:40] LABS: BASO # 0.1 K/mm3 (0.0-0.2); BASO % 0.6 % (0.0-2.0); EOS # 0.2 K/mm3 (0.0-0.7); EOS % 1.9 % (0.0-4.0); GRAN # 5.3 K/mm3 (1.4-6.5); GRAN % 51.4 % (42.2-75.2); HEMATOCRIT 38.6 % (37.0-47.0); HEMOGLOBIN 12.6 g/dl (12.5-16.0); LYMPH # 3.9 K/mm3 (1.2-3.4); LYMPH % 37.5 % (20.0-51.0); MEAN CELL VOLUME 92 fl (80.0-100.0); MEAN CORPUSCULAR HEMOGLOBIN 30 pg (27-31); MEAN CORPUSCULAR HGB CONC 33 g/dl (33.0-37.0); MEAN PLATELET VOLUME 9.5 fl (7.4-10.4); MONO # 0.8 K/mm3 (0.1-0.6); MONO % 7.9 % (1.7-9.3); PLATELET COUNT 320 K/mm3 (130-400); RED BLOOD COUNT 4.19 M/mm3 (4.10-5.30); REDCELL DISTRIBUTION WIDTH-CV 12.8 % (11.5-14.5)
[2022-02-01 19:53] VITALS: BP 136/78; PULSE 68
== END 2022-02-01 19:53 | disposition home or self-care (01) ==
LOC: COL.ER 16:34
PROVIDERS: Emergency Medicine; Physician Assistant
DX: B34.9 Viral infection, unspecified (principal); Z20.822 Contact with and (suspected) exposure to COVID-19; Z91.040 Latex allergy status

== ENCOUNTER 2022-04-09 11:15 | Outpatient (RCR) | payer BC ==
[~2022-04-09 11:15] MED LIST changes: +COZAAR 25MG25 MG/TAB PO; +IMITREX50 MG PO; +NEURONTIN800 MG/TAB PO
== END 2022-04-11 | disposition home or self-care (01) ==
LOC: MKS.ESL.PT
DX: M54.50 Low back pain, unspecified (principal); G89.29 Other chronic pain
CPT/HCPCS: G0283-GP

== ENCOUNTER 2023-10-09 07:32 | Emergency (ER) | payer BC ==
[~2023-10-09] VITALS: Ht 162.6 cm; Wt 80.0 kg
[2023-10-09 07:40] VITALS: TEMP 97.9
[2023-10-09] MEDS ORDERED: FLEXERIL 1010 MG/TAB PO (08:20)
[2023-10-09] MEDS ORDERED: PREDNISONE50 MG PO (08:20)
[2023-10-09 09:03] VITALS: BP 130/82; PULSE 72
== END 2023-10-09 09:04 | disposition home or self-care (01) ==
LOC: COL.ER 07:32
DX: M54.50 Low back pain, unspecified (principal); M54.2 Cervicalgia; Z91.040 Latex allergy status
CPT/HCPCS: J1885; J2360

== ENCOUNTER 2023-10-31 20:59 | Emergency (ER) | payer BC ==
[~2023-10-31] VITALS: Ht 162.6 cm; Wt 80.9 kg
[~2023-10-31 20:59] MED LIST changes: +PREDNISONE50 MG PO
[2023-10-31 21:04] VITALS: BP 168/88; PULSE 73; TEMP 98.3
[2023-10-31] MEDS ORDERED: CLEOCIN HCL300 MG PO (21:42)
== END 2023-10-31 22:01 | disposition home or self-care (01) ==
LOC: COL.ER 20:59
DX: L02.211 Cutaneous abscess of abdominal wall (principal); Z91.040 Latex allergy status